=== PATIENT | male | born 1975 | race Caucasian/White ===

== ENCOUNTER 2019-01-28 10:56 | Emergency (ER) | payer OTHER ==
[~2019-01-28] VITALS: Ht 188 cm; Wt 74.8 kg
[~2019-01-28 10:56] MED LIST: HALO5TAB8 PO; LITH300C2 PO; PARO10TA86 PO
[2019-01-28 10:59] VITALS: BP 112/64
--- NOTE | 2019-01-28 11:21 | NUR ---
PT TO ER BED 12. BIB SELF.AAOX4. AMBULATORY. C/O BILATERAL LOWER EXTREMETIES PAIN X 7 DAYS. DENIES CP, NO SOB, NAD. AWAING MD ORDERS
[2019-01-28] MEDS ORDERED: KETOROLAC TROMETHAMINE INJ 60 MG/2 ML VIAL IM ONE (11:34)
[2019-01-28] MEDS ORDERED: methylPREDNISolone SOD SUCC 125 MG/2ML VIAL ONE (11:34)
[2019-01-28] MEDS: methylPREDNISolone SOD SUCC 125 MG/2ML VIAL IM ONE (11:42)
[2019-01-28] MEDS: KETOROLAC TROMETHAMINE INJ 60 MG/2 ML VIAL IM ONE (11:43)
== END 2019-01-28 12:02 | disposition home or self-care (01) ==
LOC: ER 11:00
DX: M72.2 Plantar fascial fibromatosis (principal); G89.29 Other chronic pain; M54.9 Dorsalgia, unspecified; F20.9 Schizophrenia, unspecified; F10.10 Alcohol abuse, uncomplicated; F17.200 Nicotine dependence, unspecified, uncomplicated; Y90.9 Presence of alcohol in blood, level not specified; Z88.5 Allergy status to narcotic agent; Z88.6 Allergy status to analgesic agent
CPT/HCPCS: 96372 ×2; 99283; J1885; J2930

== ENCOUNTER 2019-03-17 19:54 | Emergency (ER) | payer MEDICAID ==
[~2019-03-17] VITALS: Ht 188 cm; Wt 72.1 kg
[2019-03-17 19:57] VITALS: BP 119/81
[2019-03-17] MEDS ORDERED: IBUPROFEN 600 MG TABLET PO ONE (20:30)
== END 2019-03-17 20:55 | disposition left against medical advice (07) ==
LOC: ER 19:55
DX: M25.572 Pain in left ankle and joints of left foot (principal); F20.9 Schizophrenia, unspecified; F31.9 Bipolar disorder, unspecified; G89.29 Other chronic pain; M54.9 Dorsalgia, unspecified; F10.10 Alcohol abuse, uncomplicated; F17.200 Nicotine dependence, unspecified, uncomplicated; F12.10 Cannabis abuse, uncomplicated; Y90.9 Presence of alcohol in blood, level not specified; Z88.6 Allergy status to analgesic agent; Z88.5 Allergy status to narcotic agent; V00.131A Fall from skateboard, initial encounter; Y93.51 Activity, roller skating (inline) and skateboarding; Y92.89 Other specified places as the place of occurrence of the external cause; Y99.8 Other external cause status
CPT/HCPCS: 73610-TC; 73630-TC